=== PATIENT | male | born 1955 | race Caucasian/White ===

== ENCOUNTER 2021-01-08 21:37 | Emergency (ER) | payer MEDICARE ==
[~2021-01-08] VITALS: Ht 175.3 cm; Wt 63.0 kg
[2021-01-08] MEDS ORDERED: NOXI1TAB PO (22:26)
[2021-01-08] MEDS ORDERED: ASPI81CH33 PO (22:26)
[2021-01-08] MEDS ORDERED: FAMO20TA PO (22:26)
[2021-01-08] MEDS ORDERED: PROAAER10 INH (22:26)
[2021-01-08] MEDS ORDERED: ATOR40TA75 PO (22:26)
--- NOTE | 2021-01-08 22:35 | REPVR ---
PROCEDURE INFORMATION: Exam: XR Chest Exam date and time: 01/08/2021 10:00 PM Age: 65 years old Clinical indication: Other: Chest pain TECHNIQUE: Imaging protocol: XR of the chest. Views: 1 view. COMPARISON: No relevant prior studies available. FINDINGS: Lungs: There are surgical clips at the left apical portion of the lung. There is severe bulla formation throughout the right upper lung with scarring. Pleural spaces: There is no evidence of pneumothorax at this time. Heart/Mediastinum: The heart is normal in size. Bones/joints: There is no evidence of bony abnormality. Other findings: There is a punctate metallic density overlying the left mid lung field. IMPRESSION: 1. Postoperative changes left thorax. 2. 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 Electronically signed by: Galileo Larkin On 01/08/2021 22:35:11 PM
[2021-01-08 22:53] LABS: BASO # 0.1 10^3/uL (0.0-0.2); BASO % 0.7 % (0.0-1.0); EOS # 0.1 10^3/uL (0.0-0.5); EOS % 1.7 % (0.0-3.0); HEMATOCRIT 36.1 % (42.0-52.0); HEMOGLOBIN 12.4 g/dl (13.5-17.5); LYMPH # 1.6 10^3/uL (1.5-5.0); LYMPH % 22.9 % (24.0-44.0); MEAN CORPUSCULAR HEMOGLOBIN 32.2 pg (27.0-33.0); MEAN CORPUSCULAR HGB CONC 34.3 g/dl (32.0-36.5); MEAN CORPUSCULAR VOLUME 93.8 fl (80.0-96.0); MONO # 0.8 10^3/uL (0.0-0.8); MONO % 11.2 % (2.0-8.0); NEUTROPHILS # 4.5 10^3/uL (1.5-8.5); NEUTROPHILS % 63.2 % (36.0-66.0); PLATELET COUNT, AUTOMATED 243 10^3/uL (150-450); RED BLOOD COUNT 3.85 10^6/uL (4.30-6.10); WHITE BLOOD COUNT 7.1 10^3/uL (4.0-10.0)
[2021-01-08] MEDS ORDERED: ALPRAZolam 0.25 MG TAB PO ONE (23:00)
[2021-01-08 23:46] LABS: ALBUMIN 3.2 GM/DL (3.2-5.2); ALT/SGPT 20 U/L (12-78); BILIRUBIN,DIRECT < 0.1 MG/DL (0.0-0.2); BILIRUBIN,TOTAL 0.3 MG/DL (0.2-1.0); BLOOD UREA NITROGEN 13 MG/DL (7-18); CALCIUM LEVEL 8.5 MG/DL (8.8-10.2); CARBON DIOXIDE LEVEL 29 MEQ/L (21-32); CHLORIDE LEVEL 105 MEQ/L (98-107); CREATININE FOR GFR 0.83 MG/DL (0.70-1.30); GLOMERULAR FILTRATION RATE > 60.0 (>49); GLUCOSE, FASTING 100 MG/DL (70-100); LIPASE 118 U/L (73-393); POTASSIUM SERUM 3.7 MEQ/L (3.5-5.1); SODIUM LEVEL 139 MEQ/L (136-145); TOTAL PROTEIN 5.9 GM/DL (6.4-8.2)
[2021-01-09 00:58] VITALS: BP 112/68
--- NOTE | 2021-01-09 01:17 | REPVR ---
PROCEDURE INFORMATION: Exam: US Abdomen, Limited; Right Upper Quadrant Exam date and time: 01/09/2021 12:06 AM Age: 65 years old Clinical indication: Abdominal pain; Acute; Additional info: Ruq/epigastric pain TECHNIQUE: Imaging protocol: US abdomen. Real time ultrasound with image documentation. Limited exam focused on the right upper quadrant. COMPARISON: No relevant prior studies available. FINDINGS: Liver: Normal. No masses. Gallbladder: Normal. No gallstones. There is no gallbladder wall thickening. Common bile duct: CBD measures 3.8 mm in diameter. Pancreas: Visualized pancreas is unremarkable. Right kidney: Right kidney measures 9.5 cm in length. No hydronephrosis. Normal echogenicity. No masses. Small area of scarring in the lower pole. IMPRESSION: Unremarkable right upper quadrant ultrasound. Electronically signed by: Greg Chavez On 01/09/2021 01:17:17 AM
[2021-01-09] MEDS ORDERED: REGL5TAB2 PO (01:33)
[2021-01-09] MEDS ORDERED: PROT1TAB2 PO (01:33)
--- NOTE | 2021-01-09 07:27 | ECGEPIP ---
[facility] Test Date: 2021-01-08 Pat Name: JENNIFER JURADO Department: Room: - Gender: Male Spoon Maker: YENIFER : 1955 Requested By: NIRAJ Pat Order Number: [id number] Reading MD: Louise Wagoner Measurements Intervals Needles Rate: 87 P: 79 DE: 194 QRS: 80 QRSD: 88 T: 73 QT: 354 QTc: 425 Interpretive Statements Normal sinus rhythm 1ST DEGREE BLOCK NO PRIOR Electronically Signed on 01-09-2021 7:26:55 EDT by Louise Wagoner
== END 2021-01-09 02:07 | disposition home or self-care (01) ==
LOC: M ED 21:37
DX: K21.9 Gastro-esophageal reflux disease without esophagitis (principal); K30 Functional dyspepsia; R91.8 Other nonspecific abnormal finding of lung field; J44.9 Chronic obstructive pulmonary disease, unspecified; E78.5 Hyperlipidemia, unspecified; Z79.899 Other long term (current) drug therapy